=== PATIENT | male | born 1960 | race Two or more races ===

== ENCOUNTER 2018-02-18 11:49 | Emergency (ER) | payer OTHER, SELFPAY ==
[~2018-02-18] VITALS: Ht 182.9 cm; Wt 114.0 kg
[2018-02-18] MEDS ORDERED: ACETAMINOPHEN 500 MG TABLET ONE (13:29)
[2018-02-18] MEDS ORDERED: CYCLOBENZAPRINE 10 MG TABLET PO ONE (15:30)
[2018-02-18] MEDS ORDERED: HYDROcodone/APAP 5/325 TABLET PO ONE (15:30)
[2018-02-18] MEDS ORDERED: CYCLOBENZAPRINE 10 MG TABLET ONE (15:32)
[2018-02-18] MEDS ORDERED: HYDROcodone/APAP 5/325 TABLET ONE (15:32)
[2018-02-18 16:32] VITALS: BP 154/78
== END 2018-02-18 16:34 | disposition home or self-care (01) ==
LOC: ED 14:56
DX: S16.1XXA Strain of muscle, fascia and tendon at neck level, initial encounter (principal); S29.012A Strain of muscle and tendon of back wall of thorax, initial encounter; S39.012A Strain of muscle, fascia and tendon of lower back, initial encounter; I10 Essential (primary) hypertension; E11.9 Type 2 diabetes mellitus without complications; V69.88XA Occupant (driver) (passenger) of heavy transport vehicle injured in other specified transport accidents, initial encounter; Y93.89 Activity, other specified; Y99.0 Civilian activity done for income or pay; Y92.69 Other specified industrial and construction area as the place of occurrence of the external cause
CPT/HCPCS: 71250; 72110; 72125; 99284